=== PATIENT | female | born 1995 ===

== ENCOUNTER 2022-11-11 15:29 | Outpatient (CLI) | payer OTHER | END 2022-11-11 17:12 | disposition home or self-care (01) | LOC: PRENATAL 15:29 | PROVIDERS: ATTEND Obstetrics & Gynecology Maternal & Fetal Medicine | DX: O35.3XX0 Maternal care for (suspected) damage to fetus from viral disease in mother, not applicable or unspecified (principal); O44.00 Complete placenta previa NOS or without hemorrhage, unspecified trimester; Z3A.23 23 weeks gestation of pregnancy ==

== ENCOUNTER 2023-01-02 12:23 | Outpatient (CLI) | payer OTHER | END 2023-01-02 18:03 | disposition home or self-care (01) | LOC: OBS/DEL 12:23 | PROVIDERS: ATTEND Obstetrics & Gynecology | DX: O23.33 Infections of other parts of urinary tract in pregnancy, third trimester (principal); N39.0 Urinary tract infection, site not specified; Z3A.30 30 weeks gestation of pregnancy ==

== ENCOUNTER 2023-01-28 13:33 | Inpatient (IN) | payer OTHER ==
[~2023-01-28] VITALS: Ht 165.1 cm; Wt 83.0 kg
[2023-01-28] MEDS ORDERED: PRENATAL TABLE1 EAC1 PO (13:50)
[2023-01-28 14:57] LABS: MEAN CORPUSCULAR HGB CONC 31.6 g/dl (32.0-36.0); PLATELET COUNT 184 K/uL (150-450)
[2023-01-28 15:01] LABS: MEAN CELL VOLUME 64.6 fL (80.00-100.00); MEAN CORPUSCULAR HEMOGLOBIN 20.2 pg (27.00-32.0)
[2023-01-28 15:02] LABS: HEMATOCRIT 21.9 % (36.0-45.00)
[2023-01-28 15:03] LABS: HEMOGLOBIN 6.9 g/dL (12.0-15.00)
[2023-01-28 16:21] LABS: PH,URINE 6.5 (5.0-8.0); URINE APPEARANCE Clear; URINE BILIRRUBIN Negative (NEGATIVE); URINE BLOOD Negative; URINE COLOR Dark Yellow; URINE GLUCOSE Negative (NEGATIVE); URINE LEUKOCYTE Small; URINE NITRATE Negative; URINE PROTEIN Trace (NEGATIVE)
[2023-01-28 16:25] LABS: URINE BACTERIA 1408.6 uL (0.0-1933); URINE RBC 15.3 uL (0.0-20.8); URINE WBC 90.2 uL (0.0-23.2)
[2023-01-28 16:26] LABS: MEAN CORPUSCULAR HGB CONC 31.5 g/dl (32.0-36.0); PLATELET COUNT 183 K/uL (150-450); RED BLOOD COUNT 3.47 M/uL (4.00-6.00)
[2023-01-28 16:36] LABS: INR 1.02; PARTIAL THROMBOPLASTIN TIME 27.2 SECONDS (22.0-34.0); PROTHROMBIN TIME 10.7 SECONDS (9.0-11.5)
[2023-01-28 16:37] LABS: ALBUMIN 2.6 gm/dL (3.4-5.0); BILIRUBIN TOTAL 0.64 mg/dL (0.3-1.2); CALCIUM 8.4 mg/dL (8.5-10.1); CREATININE SERUM 0.38 mg/dL (0.55-1.02); GFR 204.71; GLOBULINA 3.9 G/DL (2.4-3.5); POTASSIUM 3.41 mEq/L (3.5-5.1); TOTAL PROTEIN 6.5 gm/dL (6.4-8.2)
[2023-01-28 16:37] LABS: HEMATOCRIT 22.4 % (36.0-45.00); MEAN CELL VOLUME 64.6 fL (80.00-100.00); MEAN CORPUSCULAR HEMOGLOBIN 20.4 pg (27.00-32.0)
[2023-01-28 16:38] LABS: HEMOGLOBIN 7.1 g/dL (12.0-15.00)
[2023-01-28 16:47] LABS: URINE MUCUS HEAVY
[2023-01-28 16:48] LABS: URINE CRYSTALS FEW /HPF
[2023-01-29 12:21] LABS: FERRITIN 58.4 NG/ML (8-252)
[2023-01-29 12:27] LABS: C-REACTIVE PROTEIN 11.7 MG/DL (0.00-0.29)
[2023-01-31 08:25] LABS: MEAN CORPUSCULAR HGB CONC 30.8 g/dl (32.0-36.0); PLATELET COUNT 224 K/uL (150-450); RED BLOOD COUNT 3.56 M/uL (4.00-6.00); RED CELL DISTRIBUTION WIDTH 19.1 % (11.5-14.5)
[2023-01-31 08:51] LABS: HEMOGLOBIN 7.2 g/dL (12.0-15.00); MEAN CELL VOLUME 66.1 fL (80.00-100.00); MEAN CORPUSCULAR HEMOGLOBIN 20.2 pg (27.00-32.0)
[2023-01-31 08:52] LABS: HEMATOCRIT 23.5 % (36.0-45.00)
[2023-01-31 09:10] LABS: ALBUMIN 2.3 gm/dL (3.4-5.0); BILIRUBIN TOTAL 0.34 mg/dL (0.3-1.2); CALCIUM 8.5 mg/dL (8.5-10.1); CREATININE SERUM 0.35 mg/dL (0.55-1.02); GFR 225.09; GLOBULINA 3.5 G/DL (2.4-3.5); POTASSIUM 3.27 mEq/L (3.5-5.1); TOTAL PROTEIN 5.8 gm/dL (6.4-8.2)
[2023-02-02 06:26] LABS: MEAN CORPUSCULAR HGB CONC 31.5 g/dl (32.0-36.0); PLATELET COUNT 215 K/uL (150-450); RED BLOOD COUNT 3.48 M/uL (4.00-6.00); RED CELL DISTRIBUTION WIDTH 19.1 % (11.5-14.5)
[2023-02-02 06:29] LABS: HEMATOCRIT 23.2 % (36.0-45.00); MEAN CELL VOLUME 66.5 fL (80.00-100.00); MEAN CORPUSCULAR HEMOGLOBIN 20.9 pg (27.00-32.0)
[2023-02-02 06:31] LABS: HEMOGLOBIN 7.3 g/dL (12.0-15.00)
[2023-02-02 07:08] LABS: BILIRUBIN TOTAL 0.35 mg/dL (0.3-1.2); CALCIUM 8.2 mg/dL (8.5-10.1); CREATININE SERUM 0.33 mg/dL (0.55-1.02); GFR 240.89; GLOBULINA 3.3 G/DL (2.4-3.5); POTASSIUM 3.53 mEq/L (3.5-5.1); TOTAL PROTEIN 5.3 gm/dL (6.4-8.2)
[2023-02-02 07:19] LABS: FERRITIN 295.2 NG/ML (8-252)
== END 2023-02-03 10:10 | disposition home or self-care (01) | DRG 831 ==
LOC: OBS/DEL 13:33 → LDR 15:22
PROVIDERS: Internal Medicine Hematology & Oncology; Internal Medicine Infectious Disease; ADMIT Obstetrics & Gynecology; ATTEND Obstetrics & Gynecology
PROC: 4A1HXCZ Monitoring of Products of Conception, Cardiac Rate, External Approach (ICD-10-PCS; principal; 2023-01-28)
PROC: BY4FZZZ Ultrasonography of Third Trimester, Single Fetus (ICD-10-PCS; 2023-01-28)
PROC: BU4CZZZ Ultrasonography of Uterus and Ovaries (ICD-10-PCS; 2023-01-28)
PROC: 8E0ZXY6 Isolation (ICD-10-PCS; 2023-01-29)
DX: O98.513 Other viral diseases complicating pregnancy, third trimester (principal); O60.03 Preterm labor without delivery, third trimester; U07.1 COVID-19; O99.891 Other specified diseases and conditions complicating pregnancy; R00.0 Tachycardia, unspecified; O99.013 Anemia complicating pregnancy, third trimester; D64.9 Anemia, unspecified; O26.843 Uterine size-date discrepancy, third trimester; O36.8130 Decreased fetal movements, third trimester, not applicable or unspecified; Z3A.34 34 weeks gestation of pregnancy; Z37.0 Single live birth

== ENCOUNTER 2023-02-19 13:38 | Outpatient (CLI) | payer OTHER ==
[~2023-02-19] VITALS: Ht 165.1 cm; Wt 83.0 kg
[~2023-02-19 13:38] MED LIST: PRENATAL TABLE1 EAC1 PO
[2023-02-19] MEDS ORDERED: IRON18 MG PO (13:47)
[2023-02-19] MEDS ORDERED: PRENATAL TABLE1 EAC4 PO (13:47)
== END 2023-02-19 15:18 | disposition home or self-care (01) ==
LOC: OBS/DEL 13:38
PROVIDERS: ATTEND Obstetrics & Gynecology
DX: O47.1 False labor at or after 37 completed weeks of gestation (principal); Z3A.37 37 weeks gestation of pregnancy

== ENCOUNTER 2023-03-04 00:05 | Inpatient (IN) | payer OTHER ==
[~2023-03-04] VITALS: Ht 152.4 cm; Wt 84.4 kg
[~2023-03-04 00:05] MED LIST changes: +IRON18 MG PO; +PRENATAL TABLE1 EAC4 PO
[2023-03-04 00:34] LABS: URINE APPEARANCE Cloudy; URINE BILIRRUBIN Negative (NEGATIVE); URINE BLOOD Small; URINE COLOR Yellow; URINE GLUCOSE Negative (NEGATIVE); URINE LEUKOCYTE Moderate; URINE NITRATE Negative; URINE PROTEIN Trace (NEGATIVE)
[2023-03-04 00:38] LABS: URINE BACTERIA 1089.8 uL (0.0-1933); URINE EPITHELIAL CELLS 12.9 uL (0.0-38.8); URINE RBC 6.3 uL (0.0-20.8); URINE WBC 155.5 uL (0.0-23.2)
[2023-03-04 00:43] LABS: HEMATOCRIT 33.6 % (36.0-45.00); HEMOGLOBIN 10.8 g/dL (12.0-15.00); MEAN CELL VOLUME 75.4 fL (80.00-100.00); MEAN CORPUSCULAR HEMOGLOBIN 24.2 pg (27.00-32.0); MEAN CORPUSCULAR HGB CONC 32.1 g/dl (32.0-36.0); PLATELET COUNT 205 K/uL (150-450); RED BLOOD COUNT 4.45 M/uL (4.00-6.00)
[2023-03-04 01:01] LABS: CALCIUM 9.2 mg/dL (8.5-10.1); CREATININE SERUM 0.44 mg/dL (0.55-1.02); GFR 172.85; POTASSIUM 3.61 mEq/L (3.5-5.1)
[2023-03-04 01:06] LABS: INR 0.96; PARTIAL THROMBOPLASTIN TIME 26.8 SECONDS (22.0-34.0); PROTHROMBIN TIME 10.1 SECONDS (9.0-11.5)
[2023-03-04 06:21] LABS: ABG PH 7.282 (7.35-7.45)
[2023-03-04 06:22] LABS: ABG PO2 32.2 mmHg (80-100); ABG pCO2 40.8 mmHg (35-45); BASE EXCESS -7.4 mmol/l; BICARBONATE 18.8 mmol/l (23-25); SaO2 51.4 %; Tco2 20.1 mmol/l; o2 21 %
[2023-03-04 10:07] LABS: HEMOGLOBIN 10.4 g/dL (12.0-15.00); MEAN CELL VOLUME 75.5 fL (80.00-100.00); MEAN CORPUSCULAR HEMOGLOBIN 24.6 pg (27.00-32.0); MEAN CORPUSCULAR HGB CONC 32.6 g/dl (32.0-36.0); PLATELET COUNT 220 K/uL (150-450); RED BLOOD COUNT 4.23 M/uL (4.00-6.00)
== END 2023-03-06 16:14 | disposition home or self-care (01) | DRG 807 ==
LOC: LDR 00:05 → OB/GYN 04:12
PROVIDERS: ADMIT Obstetrics & Gynecology; ATTEND Obstetrics & Gynecology
PROC: 10E0XZZ Delivery of Products of Conception, External Approach (ICD-10-PCS; principal; 2023-03-04)
PROC: 4A1HXCZ Monitoring of Products of Conception, Cardiac Rate, External Approach (ICD-10-PCS; 2023-03-04)
DX: O80 Encounter for full-term uncomplicated delivery (principal); Z37.0 Single live birth; Z3A.39 39 weeks gestation of pregnancy; Z20.822 Contact with and (suspected) exposure to COVID-19